=== PATIENT | male | born 1960 | race Two or more races ===

== ENCOUNTER 2024-01-21 08:47 | Emergency (ER) | payer OTHER, SELFPAY ==
--- NOTE | ~2024-01-21 | US_ITS ---
EXAMINATION: US ABDOMEN LIMITED CLINICAL INFORMATION: Right upper quadrant pain History of gallstones. COMPARISON: None available. TECHNIQUE: Real-time imaging of the gallbladder and common bile duct. FINDINGS: GALLBLADDER: Normal. The gallbladder is physiologically distended without evidence of stones, sludge, polyps, wall thickening or pericholecystic fluid. No sonographic Arriaga's sign. COMMON BILE DUCT: Normal in caliber measuring 0.4 cm in diameter. US/US abdomen limited IMPRESSION: No abnormality demonstrated.
--- NOTE | 2024-01-21 08:48 | ECG_ITS ---
Test Reason : chest pain Blood Pressure : / mmHG Vent. Rate : 060 BPM Atrial Rate : 060 BPM P-R Int : 142 ms QRS Dur : 088 ms QT Int : 368 ms P-R-T Axes : 070 063 061 degrees QTc Int : 368 ms Normal sinus rhythm Normal ECG No previous ECGs available Referred By: Generic ED Physician Electronically Signed By:NAHOMY ROTH
[2024-01-21 08:58] VITALS: BP 158/74; PULSE 62; RESP 14; TEMP 36.6; O2SAT 99; BMI 25.4
[2024-01-21 09:13] LABS: MANUAL DIFF FLAG NO
[2024-01-21 09:14] LABS: Basophils Percent Auto 0.6 % (0-2); Eosinophils Absolute Auto 0.1 X10*3/uL (0.0-0.4); Eosinophils Percent Auto 1.9 % (0-4); Hematocrit 44.6 % (42.0-52.0); Hemoglobin 15.1 g/dl (14.0-18.0); Imm Gran Abs Auto 0.02 X10*3/uL (0.00-0.03); Imm Gran Pct Auto 0.3 % (0.0-0.4); Lymphocytes Absolute Auto 1.4 X10*3/uL (1.2-4.9); Lymphocytes Percent Auto 21.3 % (20-40); Mean Corpuscular HGB Conc 33.9 g/dl (31.0-36.0); Mean Corpuscular Hemoglobin 31.5 pg (27.0-33.0); Mean Corpuscular Volume 93.1 fL (80.0-98.0); Mean Platelet Volume 12.1 fL (9.4-12.4); Monocytes Absolute Auto 0.5 X10*3/uL (0.1-1.2); Monocytes Percent Auto 7.9 % (2-11); Neutrophils Absolute Auto 4.6 x10*3/uL (2.0-8.3); Platelet Count 146 X10*3/uL (160-400); Red Blood Count 4.79 X10*6/uL (4.60-5.80); Red Cell Distribution Width 13.2 % (11.0-16.0); White Blood Count 6.7 X10*3/uL (4.8-10.8)
--- NOTE | 2024-01-21 09:36 | ED.GENADULT ---
HPI - General Adult General Chief complaint: General Medical Stated complaint: chest pain Time Seen by Provider: 01/21/24 09:28 Source: patient and family Mode of arrival: ambulatory Limitations: no limitations History of Present Illness HPI narrative: 63 yo male with no PMH does not take NSAIDs every day here with c/o epigastric pain for 3 days no nausea vomiting or diarrhea no black stools. He notes worse with eating. No hx of PUD or GERD. MD complaint: epigastric pain Onset (ago): day(s) (3) Location: abdomen Radiation: non-radiation Severity: moderate Quality: aching Pain Consistency: intermittent Relieving factors: none Exacerbating factors: eating Associated symptoms: denies other symptoms Treatments prior to arrival: none Related Data Previous Rx's ?Medication ?Instructions ?Recorded omeprazole 20 mg capsule,delayed 20 mg PO BID #60 caps 01/21/24 release sucralfate 100 mg/mL oral 10 ml PO BID PRN GERD #1,000 mL 01/21/24 suspension (Carafate) Allergies Allergy/AdvReac Type Severity Reaction Status Date / Time No Known Allergies Allergy Verified 01/21/24 09:01 Review of Systems Review of Systems: Constitutional : No Weight loss, No Fever, No Chills ENT/Mouth : No sore throat, No Rhinorrhea Eyes: No Swelling, No Redness Cardiovascular : No Chest Pain, No SOB, NoEdema Respiratory : No Cough, No Sputum, No Wheezing Gastrointestinal : no Nausea, no Vomiting, no Diarrhea, positive abdominal Pain, No Hematochezia, No Melena Genitourinary : No Dysuria, No Urinary Frequency, No Hematuria, No Urgency Musculoskeletal : No joint pain, No Myalgias, No Joint Swelling Skin : No Skin Lesions, No rash Neuro : No Weakness, No Numbness, No Dizziness, No Headache Psych : No Anxiety/Panic, No Depression All other systems reviewed and are negative. [facility] Past Medical History Source: old records reviewed Medical History (Updated 01/21/24 @ 12:01 by Elza Del Rio DO) Gallstones Surgical History (Updated 01/21/24 @ 09:56 by Elza Del Rio DO) H/O hernia repair Social History Social History (Updated 01/21/24 @ 09:56 by Elza Del Rio DO) Patient Tobacco Use Status: Never used Tobacco Smoked in Last 30 Days: Yes Use of substances other than those prescribed or required for medical reasons: No Advance Directives: No Advance Directives Information Provided: Yes Physical Exam ED Vital Signs: Vital Signs - 24 hr 01/21/24 08:58 01/21/24 10:31 01/21/24 12:12 Temperature 97.9 F 97.6 F 97.8 F Pulse Rate 62 58 58 Respiratory Rate 14 16 18 Blood Pressure 158/74 H 162/77 H 154/71 H Pulse Oximetry 99 97 98 Oxygen Delivery Method Room Air Room Air Room Air BMI result Body Mass Index 25.4 Appearance: Alert. Oriented X3. No acute distress. Eyes: Pupils equal, round and reactive to light. ENT: Pharynx normal. Neck: Normal inspection. Neck supple. CVS: Normal heart rate and rhythm. Pulses normal. Respiratory: No respiratory distress. Breath sounds normal. Abdomen: Soft and nontender. Skin: Skin warm and dry. Normal skin color. Normal skin turgor. Extremities: No lower extremity edema. No calf ttp Neuro: Oriented X 3. No motor deficit. No sensory deficit. Medical Decision Making Medical Decision Making [facility] Narrative: 63 yo male with no sig PMH here with c/o epigastric pain worsening with eating no n/v/d no black stools no prior PUD at this time will need basic labs, US of gallbladder if negative will DC home on PPI BID and PCP follow up Differential Diagnosis Differential Diagnoses: The differential diagnosis associated with the presentation includes GERD, PUD, biliary colic, pancreatitis Admission/Observation Consideration of admission/observation: Escalation of care including admission/observation considered work up negative at this time stable for DC Lab Data [facility] Lab Attestation statement: I reviewed the patient's lab results. 01/21/24 09:07 01/21/24 09:07 Labs: Lab Results 01/21/24 Range/Units 09:07 WBC 6.7 (4.8-10.8) X10*3/uL RBC 4.79 (4.60-5.80) X10*6/uL Hgb 15.1 (14.0-18.0) g/dl Hct 44.6 (42.0-52.0) % MCV 93.1 (80.0-98.0) fL MCH 31.5 (27.0-33.0) pg MCHC 33.9 (31.0-36.0) g/dl RDW 13.2 (11.0-16.0) % Plt Count 146 L (160-400) X10*3/uL MPV 12.1 (9.4-12.4) fL Immature Gran % (Auto) 0.3 (0.0-0.4) % Neut % (Auto) 68.0 (45-73) % Lymph % (Auto) 21.3 (20-40) % [place] % (Auto) 7.9 (2-11) % Eos % (Auto) 1.9 (0-4) % Baso % (Auto) 0.6 (0-2) % Lymph # (Auto) 1.4 (1.2-4.9) X10*3/uL [place] # (Auto) 0.5 (0.1-1.2) X10*3/uL Eos # (Auto) 0.1 (0.0-0.4) X10*3/uL Baso # (Auto) 0.0 (0.0-0.2) X10*3/uL Abs Immat Gran (auto) 0.02 (0.00-0.03) X10*3/uL Absolute Neuts (auto) 4.6 (2.0-8.3) x10*3/uL Absolute Nucleated RBC 0.000 (0.0-0.012) X10*3/uL Nucleated RBC % (auto) 0.0 (0.0-0.2) /100WBC Sodium 138 (135-145) mmol/L Potassium 4.2 (3.3-5.1) mmol/L Chloride 107 (96-108) mmol/L Carbon Dioxide 23 (22-29) mmol/L Anion Gap 12 (12-20) BUN 11 (9-16) mg/dL Creatinine 0.82 (0.5-1.4) mg/dL Estim Creat Clear Calc 88.4 Estimated GFR > 60 Random Glucose 97 (60-115) mg/dL Calcium 10.6 H (8.4-10.2) mg/dL Total Bilirubin 0.6 (0.0-1.0) mg/dL AST 18 (5-37) U/L ALT 16 (0-40) U/L Alkaline Phosphatase 90 (39-117) U/L Troponin I High Sens 4.3 (<3.5-35.0) ng/L Total Protein 6.5 (6.5-8.0) g/dL Albumin 4.0 (3.5-5.0) g/dL Lipase 22 (8-78) U/L Independent Interpretation I performed an independent interpretation of an: EKG and Ultrasound (normal ) Interpretation: Rate: 60 Rhythm: NSR Brule: normal Normal P waves. Normal HOME. Normal QRS complex. ST T wave : no NANDO, normal qTC: 368 prior studies: no acute ischemia The study has been interpreted contemporaneously by me. . Radiology Impression Discussion of test interpretation with radiology: I have reviewed the radiologist's reading. Independent Historian Clinical information obtained from an independent historian. History obtained from or confirmed by: Other Prescription Management I considered prescription management with: Other Discharge Plan Discharge Clinical Impression: Gastritis Qualifiers: Gastritis type: unspecified gastritis Chronicity: acute Gastritis bleeding: without bleeding Qualified Code(s): K29.00 - Acute gastritis without bleeding Patient Disposition: Home, Self-Care Instructions: Gastritis (ED) Additional Instructions: no motrin, ibuprofen, aleve, advil TYLENOL IS OKAY return for worsening pain, black or bloody stools, fevers or any other concerns follow up with primary care doctor and then get GI referral Prescriptions: New omeprazole 20 mg capsule,delayed release(DR/EC) 20 mg PO BID Qty: 60 0RF sucralfate [Carafate] 100 mg/mL suspension 10 ml PO BID PRN (Reason: GERD) Qty: 1000 0RF Stand Alone Forms: Work/School Release Print Language: Citizen Of [place]
[2024-01-21 09:37] LABS: Alanine Aminotransferase 16 U/L (0-40); Alkaline Phosphatase 90 U/L (39-117); Anion Gap 12 (12-20); Aspartate Amino Transferase 18 U/L (5-37); Bilirubin Total 0.6 mg/dL (0.0-1.0); Blood Urea Nitrogen 11 mg/dL (9-16); Calcium 10.6 mg/dL (8.4-10.2); Carbon Dioxide 23 mmol/L (22-29); Chloride 107 mmol/L (96-108); Creatinine Clr Calc Pharmacy 88.4; Estimated Glomerular Filt Rate > 60; Glucose Random 97 mg/dL (60-115); Potassium 4.2 mmol/L (3.3-5.1); Sodium 138 mmol/L (135-145); Total Protein 6.5 g/dL (6.5-8.0)
[2024-01-21 09:44] LABS: Troponin-I High Sensitivity 4.3 ng/L (<3.5-35.0)
[2024-01-21 10:05] LABS: Lipase 22 U/L (8-78)
[2024-01-21 10:31] VITALS: BP 162/77; PULSE 58; RESP 16; TEMP 36.4; O2SAT 97
[2024-01-21 12:12] VITALS: BP 154/71; PULSE 58; RESP 18; TEMP 36.6; O2SAT 98
--- NOTE | 2024-01-21 13:07 | PC.NURSE ---
This RN at bedside, pt reporting 9/10 intermittent mid-epigastric burning pain. Awaiting US results. Pt laying down calm/cooperative, with family at bedside.
[2024-01-21 14:05] VITALS: BP 155/76; PULSE 60; RESP 17; TEMP 36.7; O2SAT 99
== END 2024-01-21 14:07 | disposition home or self-care (01) ==
PROVIDERS: Emergency Provider Emergency Medicine
DX: K29.00 Acute gastritis without bleeding (principal); R07.89 Other chest pain; R10.13 Epigastric pain; Z79.899 Other long term (current) drug therapy
CPT/HCPCS: 36415; 76705; 80053; 83690; 84484; 85025; 93005; 99284

== ENCOUNTER → 2024-01-21 08:48 | Outpatient (BNV) | payer SELFPAY | PROVIDERS: Emergency Provider Emergency Medicine; Visit Provider Internal Medicine | DX: R07.9 Chest pain, unspecified (principal) | CPT/HCPCS: 93010 ==